=== PATIENT | female | born 1980 | race Caucasian/White ===

== ENCOUNTER 2019-06-27 00:31 | Inpatient (IN) | payer MEDICAID ==
[~2019-06-27] VITALS: Ht 165.1 cm; Wt 76.7 kg
[2019-06-27] MEDS ORDERED: DEXT 5%/LR + PITOCIN 20UNITS/L 1,000 ML IV SCH (01:41)
[2019-06-27] MEDS ORDERED: AMOX-494 MT (01:41)
[2019-06-27] MEDS ORDERED: PREN1TAB78 MT (01:41)
[2019-06-27] MEDS ORDERED: OMEP20CA5 MT (01:41)
[2019-06-27] MEDS ORDERED: FERR-71 MT (01:41)
[2019-06-27] MEDS ORDERED: NALOXONE HCL 0.4 MG/ML 1ML VIAL IM PRN (01:45)
[2019-06-27] MEDS ORDERED: METHYLERGONOVINE MALEATE 0.2 MG/ML IM PRN (01:45)
[2019-06-27] MEDS ORDERED: BUTORPHANOL TARTRATE 2 MG/ML VIAL IV PRN (01:45)
[2019-06-27] MEDS ORDERED: LIDOCAINE HCL 1% 20ML VIAL (Pyxis) INJ INFIL SCH (01:45)
[2019-06-27] MEDS ORDERED: PENICILLIN G POTASSIUM 5 MMU in DEXT 5% WATER 100 ML IV SCH (03:00)
[2019-06-27] MEDS: LACTATED RINGERS 1,000 ML IV SCH ×3 (03:39→14:47)
[2019-06-27 04:18] LABS: BASOPHILS % 0.5 % (0.0-2.0); EOSINOPHILS % 1.2 % (0.0-5.0); HEMATOCRIT. 29.8 % (36.0-48.0); LYMPHOCYTES % 20.8 % (20.0-50.0); MEAN CORPUSCULAR VOLUME 89.6 fL (81.0-99.0); MONOCYTES % 8.2 % (2.0-8.0); NEUTROPHILS % 69.3 % (40.0-76.0); PLATELET 305 x1000/uL (130-400); RED BLOOD CELL COUNT 3.33 mill/uL (4.2-5.4)
[2019-06-27 04:21] LABS: CLARITY URINE CLEAR (CLEAR); COLOR URINE YELLOW (YELLOW); KETONES URINE NEGATIVE (NEGATIVE); LEUKOCYTE ESTERASE URINE TRACE (NEGATIVE); NITRITE URINE NEGATIVE (NEGATIVE); OCCULT BLOOD URINE NEGATIVE (NEGATIVE); PH URINE 7.5 (4.5-8.0); PROTEIN URINE NEGATIVE (NEGATIVE); SPECIFIC GRAVITY URINE 1.012 (1.005-1.030); UROBILINOGEN URINE 0.2 E.U./dL (0.2-1.0)
[2019-06-27 04:28] LABS: INR 0.9; PROTHROMBIN TIME 9.6 sec (9.6-11.0)
[2019-06-27 04:56] LABS: *AMPHETAMINES SCREEN URINE NEGATIVE (NEGATIVE); CANNABINOID URINE SCREEN NEGATIVE (NEGATIVE); METHADONE URINE SCREEN NEGATIVE (NEGATIVE); OPIATES URINE SCREEN NEGATIVE (NEGATIVE); PHENCYCLIDINE URINE SCREEN NEGATIVE (NEGATIVE)
[2019-06-27 04:57] LABS: *BARBITURATES SCREEN URINE NEGATIVE (NEGATIVE); *BENZODIAZEPINES SCREEN URINE NEGATIVE (NEGATIVE); *COCAINE SCREEN URINE NEGATIVE (NEGATIVE)
[2019-06-27 05:13] LABS: HEPATITIS B SURFACE ANTIGEN NEGATIVE
[2019-06-27] MEDS: PENICILLIN G POTASSIUM 2.5 MMU in DEXTROSE 5% WATER 50 ML IV SCH ×4 (10:40→18:53)
[2019-06-27] MEDS ORDERED: PNEUMOCOCCAL 23-VAL P-SAC VAC 0.5 ML IM ONE (12:00)
[2019-06-27] MEDS ORDERED: INFLUENZA VIRUS VACCINE(AFLURIA) 0.5ML SYR IM ONE (12:00)
[2019-06-28] MEDS ORDERED: DEXT 5%/LR + PITOCIN 20UNITS/L 1,000 ML IV SCH (00:31)
[2019-06-28 00:40] VITALS: BP 124/78
[2019-06-28] MEDS ORDERED: BENZOCAINE/LANOLIN/ALOE VERA SPRAY TOP PRN (00:45)
[2019-06-28] MEDS ORDERED: ACETAMINOPHEN WITH CODEINE 300/30MG TABLET PO PRN ×2 (00:45)
[2019-06-28 04:00] VITALS: BP 106/63
[2019-06-28 06:56] LABS: BASOPHILS % 0.5 % (0.0-2.0); EOSINOPHILS % 0.4 % (0.0-5.0); HEMATOCRIT. 30.8 % (36.0-48.0); HEMOGLOBIN. 10.4 g/dL (12.0-16.0); MEAN CORPUSCULAR HEMOGLOBIN 29.6 pg (28.0-32.0); MEAN CORPUSCULAR VOLUME 88.3 fL (81.0-99.0); MEAN PLATELET VOLUME 9.3 fl (7.4-10.4); MONOCYTES % 8.4 % (2.0-8.0); NEUTROPHILS % 81.7 % (40.0-76.0); PLATELET 305 x1000/uL (130-400); RED BLOOD CELL COUNT 3.49 mill/uL (4.2-5.4); RED CELL DISTRIBUTION WIDTH 13.6 % (11.6-14.6)
[2019-06-28 07:45] VITALS: BP 128/89
[2019-06-28] MEDS: IBUPROFEN 400MG TABLET PO PRN (11:59)
[2019-06-28] MEDS: PRENATAL VIT/FE FUMARATE/FA TABLET PO SCH (11:59)
[2019-06-28 15:13] VITALS: BP 111/76
[2019-06-28] MEDS: MAGNESIUM/ALUMINUM HYDROXIDE/SIMETHICONE 30ML UDC PO SCH ×2 (17:52→20:50)
[2019-06-28] MEDS: SIMETHICONE 80MG TABLET CHEW PO SCH ×2 (17:52→20:56)
[2019-06-28] MEDS ORDERED: INFLUENZA VIRUS VACCINE(AFLURIA) 0.5ML SYR IM ONE (20:00)
[2019-06-28] MEDS ORDERED: TETANUS, DIPHTHERIA, PERTUSSIS VAC/PF 0.5ML (>7YR OLD) IM ONE (20:00)
[2019-06-28] MEDS ORDERED: DOCUSATE SODIUM 100MG CAPSULE PO SCH (21:00)
[2019-06-28 21:16] VITALS: BP 115/61
[2019-06-29 04:48] VITALS: BP 113/70
[2019-06-29] MEDS: IBUPROFEN 400MG TABLET PO PRN (08:25)
[2019-06-29] MEDS: SIMETHICONE 80MG TABLET CHEW PO SCH (08:25)
[2019-06-29] MEDS: MAGNESIUM/ALUMINUM HYDROXIDE/SIMETHICONE 30ML UDC PO SCH (08:25)
[2019-06-29] MEDS: PRENATAL VIT/FE FUMARATE/FA TABLET PO SCH (08:25)
[2019-06-29 09:41] VITALS: BP 115/69
[2019-06-29] MEDS ORDERED: LANOLIN OINT 7GM TUBE TOP PRN (09:45)
== END 2019-06-29 11:30 | disposition home or self-care (01) | DRG 560 ==
LOC: 8 EST LDRP 00:31 → OBSVTOIN 00:31 → 8EST 06-28
PROVIDERS: ADMIT Obstetrics & Gynecology; ATTEND Obstetrics & Gynecology
PROC: 10E0XZZ Delivery of Products of Conception, External Approach (ICD-10-PCS; principal; 2019-06-28)
DX: O24.429 Gestational diabetes mellitus in childbirth, unspecified control (principal); Z37.0 Single live birth; Z3A.39 39 weeks gestation of pregnancy
CPT/HCPCS: 36415; 80305; 81003; 82962; 86592; 86703; 86762; 86850; 86900; 87340; 90686; 90715; 99281; J0595; J2540; J2590; J7060; J7120; A4315

== ENCOUNTER 2019-12-11 17:58 | Emergency (ER) | payer BC, MEDICAID ==
[~2019-12-11] VITALS: Ht 162.6 cm; Wt 70.0 kg
[2019-12-11 18:05] VITALS: BP 149/88
== END 2019-12-11 19:41 | disposition home or self-care (01) ==
LOC: ER 17:58
DX: M79.622 Pain in left upper arm (principal); F15.20 Other stimulant dependence, uncomplicated
CPT/HCPCS: 81025; 93005; 99283

== ENCOUNTER 2020-05-31 20:52 | Emergency (ER) | payer MEDICAID, OTHER ==
[~2020-05-31] VITALS: Ht 162.6 cm; Wt 66.0 kg
[2020-05-31 21:35] VITALS: BP 168/77
== END 2020-05-31 22:54 | disposition left against medical advice (07) ==
LOC: ER 20:52
DX: Z53.21 Procedure and treatment not carried out due to patient leaving prior to being seen by health care provider (principal)
CPT/HCPCS: 81025